=== PATIENT | female | born 1980 | race Hispanic/Latino ===

== ENCOUNTER 2016-09-18 07:14 | Day surgery (SDC) | payer BC ==
--- NOTE | 2016-09-17 12:31 | Short Stay Summary ---
Short Stay Documentation Date of service: 09/18/16 Narrative H&P: 36 yr old pt of Dr. Seo right Cysto W/Double J w/or w/o exchange, ESWL ; DAXA RENAL STONES - 09/02/16 KUB Daxa lgst 5mm, - CT and brink kub RT LBP / URET STONE- 09/02/16 on abx; disc expect management; triggers; er if fever; get ct bringkub h/o STONES - 09/02/16 all passed x6 since age 20; past CaOx - diet brochure, counselled ; - History Past Medical History: No medical history, other Past Surgical History: No surgical history - Allergies and Medications Current Medications: Allergies No Known Allergies Allergy (Verified 09/16/16 11:12) Home Medications Medication Instructions Recorded Confirmed Last Taken Type Ciprofloxacin HCl [Ciprofloxacin 500 mg PO BID 09/16/16 09/16/16 Unknown History TAB] Dextroamphetamine/Amphetamine 20 mg PO QDAY 09/16/16 09/16/16 Unknown History [Adderall XR 20 mg] Escitalopram [Lexapro] 10 mg PO DAILY 09/16/16 09/16/16 Unknown History Fexofenadine/Pseudoephedrine 1 each PO PRN PRN 09/16/16 09/16/16 Unknown History [Mariela-D 24 Hour Tablet] - Physical exam General appearance: well-nourished Integumentary: no rash, no growths HEENT: Atraumatic, PERRLA, EOMI Lungs: Clear to auscultation Breasts: deferred Heart: Regular rate, No murmurs Gastrointestinal: normal Female Genitourinary: deferred Extremities: no ischemia, No edema Neurological: Normal gait, Normal tone - Brief post op/procedure progress note Date of procedure: 09/18/16 Pre-op diagnosis: rt renal stones Post-op diagnosis: same Procedure: eswl ( stage) Anesthesia: ALFIEA Surgeon: SUSAN LINARES Estimated blood loss: minimal Condition: stable - Hospital course Hospital course: norco & post op info on chart - Disposition Condition at discharge: Stable Disposition: DISCHARGED TO HOME OR SELFCARE
[~2016-09-18 07:14] MED LIST: ANCEF/STERILE WATER 2 GM/20 ML 2 GM/20 ML SYRINGE IV NR
[2016-09-18] MEDS ORDERED: PEPCID ONE (08:14)
[2016-09-18] MEDS ORDERED: NACL 0.9% 1000 ML 1,000 ML ONE (08:14)
--- NOTE | 2016-09-18 08:20 | Anesthesia Consultation ---
Anesthesia Consult and Med Hx Date of service: 09/18/16 - Airway Anesthetic Teeth Evaluation: Good, Partials Mental/Hyoid Distance: Adequate Mallampati Class: Class I - Pulmonary Exam CTA: Yes - Cardiac Exam Cardiac Exam: RRR - Pre-Operative Health Status ASA Pre-Surgery Classification: ASA2 Proposed Anesthetic Plan: General - Pre-Anesthesia Comment Pre-Anesthesia Comments: Factor V deficiency requiring Lovenox during in 2011.
--- NOTE | 2016-09-18 08:20 | Anesthesia Day of Surgery ---
Anesthesia Day of Surgery - Day of Surgery Patient Examined: Yes Patient H&P Reviewed: Yes Patient is NPO: Yes
[2016-09-18] MEDS ORDERED: SUBLIMAZE ONE (08:27)
[2016-09-18] MEDS ORDERED: DIPRIVAN 10 MG/ML IV ONE (08:28)
[2016-09-18] MEDS ORDERED: ANCEF/STERILE WATER 2 GM/20 ML IV NR (09:00)
[2016-09-18] MEDS ORDERED: VERSED IV NR (09:00)
[2016-09-18] MEDS ORDERED: PEPCID PO NR (09:00)
[2016-09-18] MEDS ORDERED: NACL 0.9% 1000 ML 1,000 ML IV SCH (09:00)
[2016-09-18] MEDS ORDERED: ZOFRAN ONE (09:14)
[2016-09-18] MEDS ORDERED: XYLOCAINE MPF 2% ONE (09:14)
[2016-09-18] MEDS ORDERED: DECADRON ONE (09:14)
[2016-09-18] MEDS ORDERED: ePHEDrine SULFATE ONE (10:02)
--- NOTE | 2016-09-18 10:08 | XRay Report ---
ABDOMEN RADIOGRAPHS INDICATION: Right kidney stone. COMPARISON: None similar at this institution. FINDINGS: Frontal abdominal radiographs suspicious for bilateral renal calculi. Possibly 2 right renal calculi in the mid to lower aspect, measuring approximately 5 mm interpolar and the other possibility in the renal pelvis or the proximal ureter measuring approximately 9 x 5 mm. Approximately 5 mm linear calculus in the left mid kidney and also another 6 mm calculus towards the upper pole may also be present. Nonobstructive bowel gas pattern without pneumatosis or pneumoperitoneum. Clear visualized lung bases. Intact bones. CONCLUSION: Bilateral nephrolithiasis suspected, as described. Thank you for the opportunity to participate in this patient's care.
--- NOTE | 2016-09-18 10:43 | Operative Report ---
PREOPERATIVE DIAGNOSIS: Right renal calculi. POSTOPERATIVE DIAGNOSIS: Right renal calculi. PROCEDURE: Right extracorporal shockwave lithotripsy, staged procedure. SURGEON: Pineda Carrera MD ANESTHESIA: General. ESTIMATED BLOOD LOSS: Minimal. FLUIDS: Crystalloid. COMPLICATIONS: No complications. INDICATIONS: This patient is a 36-year-old female seen by Dr. Seo in the office, diagnosis of recurrent kidney stones. She has bilateral stones, largest on the right side approximately 8 mm, actually 2 stones based on branch retail executive film today. We discussed options. We will treat the stone in the renal pelvis, staged procedure. DESCRIPTION OF PROCEDURE: The patient was taken to the operative suite, placed in a supine position. After adequate general anesthesia, placed in a supine position. The stone was localized in 2 planes using fluoroscopy. Extracorporal shock wave lithotripsy was administered with a maximum kV of 5 and 2500 shocks. Renal pause was done after 200 shocks. Adequate fragmentation of the stone in the renal pelvis. She had a second stone in the upper pole, did not have enough shocks to distribute them to the second stone and may require treatment at a later date. She tolerated the procedure well. She was extubated and taken to recovery room. She will go home on [place] and follow up in the office. JOB# [id number] [facility]/SADIE
[2016-09-18] MEDS ORDERED: NORCO 5/325 PO PRN (10:45)
--- NOTE | 2016-09-18 11:06 | Post Anesthesia Evaluation ---
- Post Anesthesia Evaluation Patient Participated: Yes Airway Patent: Yes Stable Respiratory Function: Yes Nausea/Vomiting: No Temp > 96.8F: Yes Pain Manageable: Yes Adequeate Hydration: Yes Anesthesia Complications: No Block Receding Appropriately: Not Applicable Patient on Ventilator: No
[2016-09-18 11:12] VITALS: BP 124/85
[2016-09-18] MEDS ORDERED: ZOFRAN IM NR (11:18)
[2016-09-18] MEDS ORDERED: MORPHINE IV PRN (11:19)
== END 2016-09-18 11:58 | disposition home or self-care (01) ==
LOC: OR 07:14
PROVIDERS: ATTEND Urology
DX: N20.0 Calculus of kidney (principal); Z83.3 Family history of diabetes mellitus; Z82.3 Family history of stroke
CPT/HCPCS: 50590; 74000; 81025; J0690; J1100; J2250; J2405; J2704; J3010; J7030

== ENCOUNTER 2016-11-27 11:05 | Day surgery (SDC) | payer BC ==
[2016-11-27] MEDS ORDERED: ZOFRAN ONE (14:00)
--- NOTE | 2016-11-27 14:15 | Anesthesia Day of Surgery ---
Anesthesia Day of Surgery - Day of Surgery Patient Examined: Yes Patient H&P Reviewed: Yes Patient is NPO: Yes
--- NOTE | 2016-11-27 14:15 | Anesthesia Consultation ---
Anesthesia Consult and Med Hx Date of service: 11/27/16 - Airway Anesthetic Teeth Evaluation: Good ROM Head & Neck: Adequate Mental/Hyoid Distance: Adequate Mallampati Class: Class II Intubation Access Assessment: Probably Good - Pre-Operative Health Status ASA Pre-Surgery Classification: ASA2 Proposed Anesthetic Plan: General - Pulmonary Hx Smoking: No Hx Sleep Apnea: No (MANDA PRE SCREEN LOW RISK) - Cardiovascular System Hx Hypertension: No Hx Peripheral Vascular Disease: Yes (? - LEGS) - Central Nervous System Hx Psychiatric Problems: Yes (depression) - Endocrine Hx Renal Disease: Yes (kidney stones) - Hematic Hx Anemia: Yes (NOT RECENT) - Other Systems Hx Cancer: No
[2016-11-27] MEDS ORDERED: DILAUDID ONE (14:38)
[2016-11-27] MEDS ORDERED: DIPRIVAN 10 MG/ML IV ONE (14:39)
[2016-11-27] MEDS ORDERED: XYLOCAINE MPF 2% ONE (14:39)
[2016-11-27] MEDS ORDERED: PEPCID IV NR (15:00)
[2016-11-27] MEDS ORDERED: VERSED IV NR (15:00)
[2016-11-27] MEDS ORDERED: ANCEF/STERILE WATER 2 GM/20 ML IV NR (15:00)
[2016-11-27] MEDS ORDERED: NACL 0.9% 1000 ML 1,000 ML IV SCH (15:00)
[2016-11-27] MEDS ORDERED: ePHEDrine SULFATE ONE (15:41)
[2016-11-27] MEDS ORDERED: DILAUDID IV PRN (16:32)
[2016-11-27] MEDS ORDERED: TORADOL IV PRN (16:36)
--- NOTE | 2016-11-27 16:36 | Post Anesthesia Evaluation ---
- Post Anesthesia Evaluation Patient Participated: Yes Airway Patent: Yes Stable Respiratory Function: Yes Nausea/Vomiting: No Temp > 96.8F: Yes Pain Manageable: Yes Adequeate Hydration: Yes Anesthesia Complications: No
[2016-11-27] MEDS ORDERED: ZOFRAN IV PRN (16:37)
--- NOTE | 2016-11-27 17:01 | Short Stay Summary ---
Short Stay Documentation Date of service: 11/27/16 - History H&P: obtained from office - Allergies and Medications Current Medications: Allergies No Known Allergies Allergy (Verified 09/16/16 11:12) Home Medications Medication Instructions Recorded Confirmed Last Taken Type Ciprofloxacin HCl [Ciprofloxacin 500 mg PO BID 09/16/16 11/20/16 09/17/16 17:00 History TAB] Dextroamphetamine/Amphetamine 20 mg PO QDAY 09/16/16 11/20/16 09/17/16 09:00 History [Adderall XR 20 mg] Escitalopram [Lexapro] 10 mg PO DAILY 09/16/16 11/27/16 11/26/16 09:00 History Fexofenadine/Pseudoephedrine 1 each PO PRN PRN 09/16/16 11/20/16 Unknown History [Mariela-D 24 Hour Tablet] Active Medications Cefazolin Sodium (Ancef/Sterile Water 2 Gm/20 Ml) 2 gm IV PREOP NR Stop: 11/27/16 23:59 Famotidine (Pepcid) 20 mg IV PREOP NR Stop: 11/27/16 23:00 Last Admin: 11/27/16 14:29 Dose: 20 mg Hydromorphone HCl (Dilaudid) 0.5 mg IV Q10MIN PRN PRN Reason: Pain , Severe (7-10) Stop: 11/30/16 16:33 Last Admin: 11/27/16 16:35 Dose: 0.5 mg Sodium Chloride (Nacl 0.9% 1000 Ml) 1,000 mls @ 100 mls/hr IV DIRECT [place] Last Admin: 11/27/16 14:29 Dose: 100 mls/hr Midazolam HCl (Versed) 2 mg IV PREOP NR Stop: 11/27/16 23:59 Last Admin: 11/27/16 14:33 Dose: 2 mg - Brief post op/procedure progress note Date of procedure: 11/27/16 Post-op diagnosis: same Procedure: or pacu home Anesthesia: GETA Findings: good vis excellent frag Surgeon: ROME WOLF Estimated blood loss: minimal Pathology: none Condition: stable - Hospital course Hospital course: or pacu home - Disposition Condition at discharge: Good Disposition: DC-01 TO HOME OR SELFCARE Short Stay Discharge Plan Activity: advance as tolerated Diet: advance as tolerated Follow up with: ROME WOLF MD [Staff Physician] - 7 Days
[2016-11-27 18:20] VITALS: BP 119/78
--- NOTE | 2016-12-22 06:41 | Operative Report ---
PREOPERATIVE DIAGNOSIS: Right renal stone. POSTOPERATIVE DIAGNOSIS: Right renal stone. PROCEDURE: Right renal extracorporeal shock wave lithotripsy. SURGEON: Jeffry Seo M.D. ANESTHESIA: General. SPECIMENS: None. ESTIMATED BLOOD LOSS: Minimal. COMPLICATIONS: None. FINDINGS: Good visualization of the stone and good fragmentation. CLINICAL INDICATIONS: Counseled on RCBA, antibiotics, SCDs. The patient has a history of two right renal stones, one was treated in the past with resolution of the one stone. She is here for staged treatment for a second completely different stone. Antibiotics, SCDs. DESCRIPTION OF PROCEDURE: The patient was transferred to the OR suite in supine position, anesthesia, biplanar fluoroscopy was used to target the stone with an F2. There was good visualization of the stone on the right side. A total of 2500 shocks were delivered at a maximum of 5.0 kilovolts with intermittent repositioning done as necessary and significant decreased density at the end of the procedure. There appeared to be excellent fragmentation of the stone. The patient was awakened and transferred to the PACU in good and stable condition. JOB# [id number] ATS/NTS
== END 2016-11-27 18:25 | disposition home or self-care (01) ==
LOC: OR 11:05
PROVIDERS: ATTEND Urology
DX: N20.0 Calculus of kidney (principal); I10 Essential (primary) hypertension; F32.9 Major depressive disorder, single episode, unspecified; D68.51 Activated protein C resistance; M35.00 Sjogren syndrome, unspecified; Z86.79 Personal history of other diseases of the circulatory system; Z83.3 Family history of diabetes mellitus; Z82.3 Family history of stroke
CPT/HCPCS: 50590; 81025; J0690; J1170; J1885; J2250; J2405; J2704; J7030

== ENCOUNTER 2017-03-19 10:08 | Day surgery (SDC) | payer BC ==
--- NOTE | 2017-03-19 10:57 | Anesthesia Consultation ---
Anesthesia Consult and Med Hx Date of service: 03/19/17 - Airway Anesthetic Teeth Evaluation: Good ROM Head & Neck: Adequate Mental/Hyoid Distance: Adequate Mallampati Class: Class II Intubation Access Assessment: Probably Good - Pulmonary Exam CTA: Yes - Cardiac Exam Cardiac Exam: RRR - Pre-Operative Health Status ASA Pre-Surgery Classification: ASA1 Proposed Anesthetic Plan: General - Pulmonary Hx Smoking: No Hx Sleep Apnea: No (MANDA PRE SCREEN LOW RISK) - Cardiovascular System Hx Hypertension: No Hx Peripheral Vascular Disease: Yes (? - LEGS) - Endocrine Hx Non-Insulin Dependent Diabetes: No - Hematic Hx Anemia: Yes (NOT RECENT) - Other Systems Hx Cancer: No
--- NOTE | 2017-03-19 10:57 | Anesthesia Day of Surgery ---
Anesthesia Day of Surgery - Day of Surgery Patient Examined: Yes Patient H&P Reviewed: Yes Patient is NPO: Yes
[2017-03-19] MEDS ORDERED: VERSED IV NR (11:00)
[2017-03-19] MEDS ORDERED: LACTATED RINGERS 1,000 ML IV SCH (11:00)
--- NOTE | 2017-03-19 11:57 | Short Stay Summary ---
Short Stay Documentation Date of service: 03/19/17 - History H&P: obtained from office - Allergies and Medications Current Medications: Allergies No Known Allergies Allergy (Verified 09/16/16 11:12) Home Medications Medication Instructions Recorded Confirmed Last Taken Type Fexofenadine/Pseudoephedrine 1 each PO PRN PRN 09/16/16 03/16/17 Unknown History [Mariela-D 24 Hour Tablet] Active Medications Cefazolin Sodium (Ancef/Sterile Water 2 Gm/20 Ml) 2 gm IV PREOP NR Stop: 03/19/17 12:01 Famotidine (Pepcid) 20 mg PO PREOP NR Stop: 03/19/17 12:01 Last Admin: 03/19/17 11:19 Dose: 20 mg Lactated Ringer's (Lactated Ringers) 1,000 mls @ 100 mls/hr IV DIRECT [place] Last Admin: 03/19/17 11:19 Dose: 100 mls/hr Midazolam HCl (Versed) 2 mg IV PREOP NR Stop: 03/19/17 23:59 Last Admin: 03/19/17 11:20 Dose: 2 mg Scopolamine (Transderm-Scop) 1 each TD PREOP NR Stop: 03/19/17 12:01 Last Admin: 03/19/17 11:19 Dose: 1 each - Brief post op/procedure progress note Date of procedure: 03/19/17 Pre-op diagnosis: left renal stone 2, 6 and 6 mm Post-op diagnosis: same Procedure: left eswl Anesthesia: GETA Findings: good vis sing dec tx up Surgeon: ROME WOLF Estimated blood loss: none Pathology: none Condition: stable - Hospital course Hospital course: or pacu home - Disposition Condition at discharge: Good Disposition: DC-01 TO HOME OR SELFCARE Short Stay Discharge Plan Activity: advance as tolerated Diet: advance as tolerated Follow up with: ROME WOLF MD [Staff Physician] - 7 Days
[2017-03-19] MEDS ORDERED: ANCEF/STERILE WATER 2 GM/20 ML IV NR (12:00)
[2017-03-19] MEDS ORDERED: TRANSDERM-SCOP TD NR (12:00)
[2017-03-19] MEDS ORDERED: PEPCID PO NR (12:00)
[2017-03-19] MEDS ORDERED: SUBLIMAZE ONE (12:16)
[2017-03-19] MEDS ORDERED: XYLOCAINE MPF 2% ONE ×2 (12:16→13:07)
[2017-03-19] MEDS ORDERED: DIPRIVAN 10 MG/ML IV ONE (12:16)
[2017-03-19] MEDS ORDERED: ZOFRAN ONE (12:16)
[2017-03-19] MEDS ORDERED: LACTATED RINGERS 1,000 ML ONE (13:07)
[2017-03-19] MEDS ORDERED: DEMEROL ONE (13:57)
[2017-03-19] MEDS ORDERED: DILAUDID ONE (14:04)
[2017-03-19] MEDS ORDERED: DILAUDID IV PRN (14:07)
[2017-03-19] MEDS ORDERED: DEMEROL IV PRN (14:07)
[2017-03-19] MEDS ORDERED: ZOFRAN IV PRN (14:07)
--- NOTE | 2017-03-19 16:48 | Operative Report ---
PREOPERATIVE DIAGNOSES: Left renal stones x 26 mm each. POSTOPERATIVE DIAGNOSIS: Left renal stones x 26 mm each. PROCEDURE: Left renal ESWL of the upper pole stone. SURGEON: Jeffry Seo M.D. ANESTHESIA: General. SPECIMENS: None. ESTIMATED BLOOD LOSS: Minimal. COMPLICATIONS: None. IMPLANTS: None. FINDINGS: Good visualization of the upper pole stone, significantly decrease in density by the end of the procedure. CLINICAL INDICATIONS: Counseled RCBA, antibiotics, SCDs. The patient has a history of having 4 stones, 2 large stones on the right up to 9 mm apiece. These were targeted individually with good results in the past and she is here for different stone with the plan on targeting each of these stones and treating. Plan was discussed to target one stone and then go to the next one if possible. DESCRIPTION OF PROCEDURE: The patient had antibiotics, SCDs, transferred to OR suite in supine position, anesthesia, prepped and draped in standard fashion. Biplanar fluoroscopy was used to target the stone on the left side with an F2. We were able to see the mid and upper pole stones and then the lower pole stone. We targeted the upper pole stone. A total of 2500 shocks were delivered. Biplanar fluoroscopy was used to target the stone with an F2. There was good visualization of the stone. At the end of the procedure, there was significant decreased density of the stone. A total of 2500 shocks were delivered with intermittent repositioning as necessary. At the end of the procedure, the patient was awakened and transferred to PACU in good and stable condition. JOB# [id number] ATS/NTS
[2017-03-19 16:57] VITALS: BP 118/69
== END 2017-03-19 16:01 | disposition home or self-care (01) ==
LOC: OR 10:08
PROVIDERS: ATTEND Urology
DX: N20.0 Calculus of kidney (principal); I10 Essential (primary) hypertension
CPT/HCPCS: 50590; 81025; J0690; J1170; J2175; J2250; J2405; J2704; J3010; J7120

== ENCOUNTER 2017-05-07 06:58 | Day surgery (SDC) | payer BC ==
--- NOTE | 2017-05-07 07:49 | Anesthesia Day of Surgery ---
Anesthesia Day of Surgery - Day of Surgery Patient Examined: Yes Patient H&P Reviewed: Yes Patient is NPO: Yes
--- NOTE | 2017-05-07 07:49 | Anesthesia Consultation ---
Anesthesia Consult and Med Hx Date of service: 05/07/17 - Airway Anesthetic Teeth Evaluation: Good ROM Head & Neck: Adequate Mental/Hyoid Distance: Adequate Mallampati Class: Class I Intubation Access Assessment: Good - Pulmonary Exam CTA: Yes - Cardiac Exam Cardiac Exam: RRR - Pre-Operative Health Status ASA Pre-Surgery Classification: ASA2 Proposed Anesthetic Plan: General (PONV, takes limbrell for sjogins disease - not taken for one week) - Pulmonary Hx Smoking: No Hx Sleep Apnea: No (MANDA PRE SCREEN LOW RISK) - Cardiovascular System Hx Hypertension: No Hx Peripheral Vascular Disease: Yes (? 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
[2017-05-07] MEDS ORDERED: NACL BACTERIOSTATIC INFILTRATI ONE (08:00)
[2017-05-07] MEDS ORDERED: SUBLIMAZE ONE (08:12)
[2017-05-07] MEDS ORDERED: XYLOCAINE MPF 2% ONE (08:12)
[2017-05-07] MEDS ORDERED: DIPRIVAN 10 MG/ML IV ONE (08:13)
[2017-05-07] MEDS ORDERED: ANCEF/NS 1 GM/50 ML 1 GM/50 ML BAG IV NR (08:28)
[2017-05-07] MEDS ORDERED: TRANSDERM-SCOP TD NR (08:30)
[2017-05-07] MEDS ORDERED: PEPCID IV NR (08:30)
[2017-05-07] MEDS ORDERED: NACL 0.9% 1000 ML 1,000 ML IV SCH (08:30)
[2017-05-07] MEDS ORDERED: VERSED IV NR (08:30)
[2017-05-07] MEDS ORDERED: DECADRON ONE (08:56)
[2017-05-07] MEDS ORDERED: ZOFRAN ONE (08:56)
--- NOTE | 2017-05-07 09:21 | Post Operative Note ---
Date of procedure: 05/07/17 Pre-op diagnosis: l renal stones Post-op diagnosis: same Findings: as above Procedure: left eswl Anesthesia: EMILEE Surgeon: REJI THAPA Estimated blood loss: none Pathology: none Condition: stable Disposition: PACU
--- NOTE | 2017-05-07 09:22 | Discharge Summary ---
Short Stay Discharge Plan Activity: other (no straining ) Weight Bearing Status: Full Weight Bearing Diet: regular Special Instructions: other (inc fluids ) Additional Instructions: REMOVE SCOPOLAMINE PATCH FROM BEHIND LEFT EAR BY 05/10/17. Follow up with: ALTASHA LA MD [Primary Care Provider] - 7 Days ROME WOLF MD [Staff Physician] - 7 Days
--- NOTE | 2017-05-07 09:32 | Operative Report ---
PREOPERATIVE DIAGNOSIS: Bilateral renal stones. POSTOPERATIVE DIAGNOSIS: Bilateral renal stones. PROCEDURE: Left lithotripsy. SURGEON: Min Nieto MD ANESTHESIA: General. FINDINGS: This is a woman with left renal stone. She now presents for lithotripsy. All risks and complications were discussed. DESCRIPTION OF PROCEDURE: The patient was brought to the operating room and placed on the table. Following induction of anesthesia, placed over the focal point. The stone was well localized over the lower rib and shocks were begun at 1 kV, renal pause was carried out and shocks were gone up to 4 kV. For about 200 shocks were at 5 kV. The patient tolerated the procedure well. 2500 shocks were given, brought to recovery in stable condition. JOB# [id number] [facility]
[2017-05-07] MEDS ORDERED: PERCOCET 5/325 PO ONE (11:00)
[2017-05-07 15:39] VITALS: BP 113/74
== END 2017-05-07 11:24 | disposition home or self-care (01) ==
LOC: OR 06:58
PROVIDERS: ATTEND Urology
DX: N20.0 Calculus of kidney (principal); I73.9 Peripheral vascular disease, unspecified; M19.90 Unspecified osteoarthritis, unspecified site; M35.00 Sjogren syndrome, unspecified; F32.9 Major depressive disorder, single episode, unspecified
CPT/HCPCS: 50590; 81025; J1100; J2250; J2405; J2704; J3010; J7030